=== PATIENT | male | born 1935 | race Caucasian/White ===

== ENCOUNTER → 2019-08-28 | Day surgery (SDC) | payer MEDICARE ==
[2019-08-23 10:01] LABS: BASOPHILS % 0.7 % (0.0-1.0); EOSINOPHILS # (AUTO) 0.2 (0.0-0.4); HEMATOCRIT 41.9 % (38.2-49.6); HEMOGLOBIN 14.3 g/dL (14.0-18.0); LYMPHOCYTES # (AUTO) 1.3 (1.0-3.2); LYMPHOCYTES % 22.4 % (18.0-39.1); MEAN CORPUSCULAR HGB CONC 34.1 g/dL (31-35); MEAN CORPUSCULAR VOLUME 90.9 fL (81-99); MONOCYTES # (AUTO) 0.8 (0.2-0.8); MONOCYTES % 13.4 % (4.4-11.3); NEUTROPHILS # (AUTO) 3.5 (2.1-6.9); PLATELET COUNT 205 x10e3/uL (140-360); RED BLOOD COUNT 4.61 x10e6/uL (4.3-5.7); RED CELL DISTRIBUTION WIDTH 12.4 % (11.7-14.4)
[~2019-08-28] MED LIST: AMLODIPINE BESY10 MG PO; ATORVASTATIN CA20 MG PO; CENTRUM SILVER1 EAC3 PO; FISH OIL 1,2001 EACH PO; HYDROCHLOROTHIA25 MG PO; PROPOFOL IV EMULSION 10 MG/ML 50 ML VIAL ONE; RESTASIS1 EACH OP; VISION SHIELD PO
--- OUTSIDE RECORDS SUMMARY | 2019-08-28 05:34 | XMS REPORT ---
Author Author [facility] Address Unknown Phone Unavailable Care Team Providers Care Angiography Nurse Name Role Phone Unavailable Unavailable Problems This patient has no known problems. Allergies, Adverse Reactions, Alerts This patient has no known allergies or adverse reactions. Medications This patient has no known medications. Encounters Start Date/Time End Date/Time Encounter Type Admission Type Attending Clinicians [facility] Facility Care Department Encounter ID 2019-07-12 10:39:00 2019-07-12 10:39:00 Outpatient [id number]
--- NOTE | 2019-08-28 07:10 | NUR ---
SPIRITUAL CARE - Pre-Surgery Assessment: Pt in bed. Pt's son at bedside. Pt reported supportive attention from family and friends. Intervention: I provided pastoral presence, hospitality, and sympathetic listening. I acquainted pt with availability of skills instructor while hospitalized. Outcome: Pt expressed appreciation for visit. No need for follow up indicated at this time. JOSEPHINE Bashirlain Spiritual Care Department O: [phone] Pager: [phone] ([phone] number calling from)
[2019-08-28 08:40] VITALS: BP 128/82
--- NOTE | 2019-08-28 08:41 | Operative Report ---
DATE OF PROCEDURE: 08/28/2019 SURGEON: Scooby Andrews MD NAME OF THE PROCEDURE: Colonoscopy and polypectomy. The patient has history of adenomatous colon polyps here for surveillance. DESCRIPTION OF PROCEDURE: After informed written consent, premedications with monitored anesthesia care, standard adult video Olympus colonoscope was then introduced into the rectum and all the way into the cecum. The cecum, ascending, transverse, and descending colon all appeared to be normal. Hepatic flexure showed evidence of a 6 mm polyp, which was removed with a cold snare. The sigmoid colon at 20 cm from the anal verge showed a 2 cm semipedunculated polyp removed by a hot snare and then one Endoclip was placed. A 5-mm polyp was seen in the rectum, which was removed by a cold snare. IMPRESSION: 1. Diverticulosis. Mild diverticulosis in the sigmoid colon. 2. Three colon polyps, one removed with hot snare in the sigmoid, the other two removed with cold snare with one Endoclip placement. RECOMMENDATION: Avoid aspirin and NSAIDs for two weeks. Colonoscopy in three years depending on his clinical course and further recommendations will be based on the patient's clinical course. Scooby Andrews MD SR/MODL /[id number]
== END | disposition home or self-care (01) ==
LOC: OR 05:31
PROVIDERS: ATTEND Internal Medicine Gastroenterology
DX: Z09 Encounter for follow-up examination after completed treatment for conditions other than malignant neoplasm (principal); D12.3 Benign neoplasm of transverse colon; D12.5 Benign neoplasm of sigmoid colon; K62.1 Rectal polyp; K57.30 Diverticulosis of large intestine without perforation or abscess without bleeding; Z71.3 Dietary counseling and surveillance; E66.3 Overweight; I10 Essential (primary) hypertension; Z91.040 Latex allergy status; Z01.812 Encounter for preprocedural laboratory examination; Z68.25 Body mass index [BMI] 25.0-25.9, adult
CPT/HCPCS: 36415; 45385; 85025; 88305; J2704

== ENCOUNTER → 2022-10-12 | Day surgery (SDC) | payer MEDICARE ==
[2022-10-06 09:20] LABS: BASOPHILS # (AUTO) 0.1 (0.0-0.1); EOSINOPHILS # (AUTO) 0.4 (0.0-0.4); EOSINOPHILS % 6.4 % (0.0-6.0); HEMATOCRIT 43.3 % (38.2-49.6); HEMOGLOBIN 14.3 g/dL (14.0-18.0); LYMPHOCYTES # (AUTO) 1.6 (1.0-3.2); MEAN CORPUSCULAR HEMOGLOBIN 31.6 pg (28-32); MEAN CORPUSCULAR VOLUME 95.6 fL (81-99); MONOCYTES # (AUTO) 0.8 (0.2-0.8); MONOCYTES % 13.6 % (4.4-11.3); NEUTROPHILS # (AUTO) 2.9 (2.1-6.9); NEUTROPHILS % 50.7 % (38.7-80.0); PLATELET COUNT 198 x10e3/uL (140-360); RED BLOOD COUNT 4.53 x10e6/uL (4.3-5.7); RED CELL DISTRIBUTION WIDTH 11.9 % (11.7-14.4)
[~2022-10-12] MED LIST changes: +ALBUTEROL0.63 MG/3 NEB; +ASPIRIN81 MG PO; +HYOSCYAMINE SULFATE 0.5 MG/ML INJ ONE; +LIDOCAINE HCL 2% LOCAL INJ 5 ML SDV VIAL INJ ONE; +PROPOFOL IV EMULSION 10 MG/ML 20 ML VIAL ONE; -PROPOFOL IV EMULSION 10 MG/ML 50 ML VIAL ONE
[2022-10-12 08:00] VITALS: BP 128/70
== END | disposition home or self-care (01) ==
LOC: OR 07:08
PROVIDERS: ATTEND Internal Medicine Gastroenterology
DX: Z09 Encounter for follow-up examination after completed treatment for conditions other than malignant neoplasm (principal); D12.3 Benign neoplasm of transverse colon; K57.30 Diverticulosis of large intestine without perforation or abscess without bleeding; I10 Essential (primary) hypertension; Z91.040 Latex allergy status; Z01.812 Encounter for preprocedural laboratory examination; Z79.82 Long term (current) use of aspirin; Z79.899 Other long term (current) drug therapy
CPT/HCPCS: 36415; 45385; 85025; 88305; J1980; J2001; J2704; 45378